=== PATIENT | male | born 1945 | race Caucasian/White ===

== ENCOUNTER 2021-11-20 10:43 | Day surgery (SDC) | payer OTHER ==
[2021-11-20] VITALS (10 sets, daily range): BP systolic 123–142; BP diastolic 69–90
[~2021-11-20] VITALS: Ht 182.9 cm; Wt 99.2 kg
[2021-11-20] MEDS ORDERED: iohexol 350 MG/ML 50ML vial IV ONE (11:00)
[2021-11-20] MEDS ORDERED: normal saline 1,000 ML IV SCH (11:15)
[2021-11-20] MEDS ORDERED: diphenhydrAMINE 25mg capsule PO PRN (11:15)
[2021-11-20] MEDS ORDERED: VITD (11:27)
[2021-11-20] MEDS ORDERED: GABA300C PO (11:27)
[2021-11-20] MEDS ORDERED: ALLO300T2 PO (11:27)
[2021-11-20] MEDS ORDERED: PRAV80TA3 PO (11:27)
[2021-11-20] MEDS ORDERED: [UNRECOGNIZED DRUG - OTHER] (11:27)
[2021-11-20] MEDS ORDERED: OMEP20CA15 PO (11:27)
[2021-11-20] MEDS ORDERED: LOSA50TA3 PO (11:27)
[2021-11-20] MEDS ORDERED: RANO500T3 PO (11:27)
[2021-11-20] MEDS ORDERED: ASPI-1071 PO (11:27)
[2021-11-20] MEDS ORDERED: FINA5TAB11 PO (11:27)
[2021-11-20] MEDS ORDERED: APIX5TAB3 PO (11:27)
[2021-11-20] MEDS ORDERED: FLO0.4C PO (11:27)
[2021-11-20] MEDS ORDERED: ZOLP5TAB8 PO (11:27)
[2021-11-20] MEDS ORDERED: CHLO25TA10 PO (11:27)
[2021-11-20] MEDS ORDERED: NITR0.4T51 SL (11:27)
[2021-11-20] MEDS ORDERED: FLUT16SP10 (11:32)
[2021-11-20] MEDS ORDERED: TRAM50TA2 PO (11:32)
[2021-11-20] MEDS ORDERED: TORS20TA3 PO (11:32)
[2021-11-20] MEDS ORDERED: FAMO-128 PO (11:32)
[2021-11-20] MEDS ORDERED: AMLO10TA14 PO (11:32)
[2021-11-20 11:53] LABS: BASOPHILS # (AUTO) 0.1 X10'3 (0-0.2); BASOPHILS % (AUTO) 1.5 % (0-1); EOSINOPHILS # (AUTO) 0.4 X10'3 (0-0.9); HEMATOCRIT 29.6 % (42.0-52.0); HEMOGLOBIN 9.9 g/dl (14.0-17.9); LYMPHOCYTES # (AUTO) 0.6 X10'3 (1.1-4.8); LYMPHOCYTES % (AUTO) 11.9 % (21-51); MEAN CORPUSCULAR HEMOGLOBIN 30.4 PG (27.0-31.0); MEAN CORPUSCULAR HGB CONC 33.4 g/dL (33.0-36.5); MEAN CORPUSCULAR VOLUME 90.9 FL (78-98); MEAN PLATELET VOLUME 7.1 FL (7.4-10.4); MONOCYTES # (AUTO) 0.4 X10'3 (0-0.9); MONOCYTES % (AUTO) 8.1 % (2-12); NEUTROPHILS # (AUTO) 3.7 X10'3 (1.8-7.7); NEUTROPHILS % (AUTO) 70.5 % (42-75); PLATELET COUNT 206 X10'3 (140-440); RED BLOOD COUNT 3.26 X10'6 (4.70-6.10); RED CELL DISTRIBUTION WIDTH 18.7 % (11.5-14.5); WHITE BLOOD COUNT 5.2 X10'3 (4.5-11.0)
[2021-11-20 12:01] LABS: ALBUMIN 3.4 G/DL (3.4-5.0); ANION GAP 10 (8-16); BLOOD UREA NITROGEN 25 MG/DL (7-18); BUN/CREATININE RATIO 15.9 (5.4-32.0); CALCIUM 8.8 MG/DL (8.5-10.1); CHLORIDE 106 MMOL/L (99-107); CREATININE 1.57 MG/DL (0.60-1.10); GLUCOSE 106 MG/DL (70-104); MAGNESIUM 2.4 MG/DL (1.5-2.4); POTASSIUM 4.4 MMOL/L (3.5-5.1); SODIUM 140 MMOL/L (135-145); TOTAL CARBON DIOXIDE 24.4 MMOL/L (24-32); eGFR 43 ML/MIN
[2021-11-20] MEDS ORDERED: verapamil 2.5 mg/ml inj IV ONE (14:31)
[2021-11-20] MEDS ORDERED: nitroGLYCERIN-Tridil 50MG/D5W 0 ML IV ONE (14:31)
[2021-11-20] MEDS ORDERED: midazolam 1 mg/ML 2ml injection ONE (14:32)
[2021-11-20] MEDS ORDERED: LIDOcaine 1% 30ml preserv. free vial ONE (14:32)
[2021-11-20] MEDS ORDERED: heparin 1,000unit/ml 10ml vial 10 ML ONE (14:32)
[2021-11-20] MEDS ORDERED: fentaNYL/PF 50MCG/1 ML 2ML syringe ONE (14:32)
[2021-11-20] MEDS ORDERED: IOHEXOL 350 MG/ML INFUS..BTL 125ML IV ONE (14:34)
[2021-11-20] MEDS ORDERED: normal saline 1000ml 1,000 ML IV SCH (16:50)
[2021-11-20] MEDS ORDERED: HYDROcodone/acetaminophen 10/325mg tab PO PRN (16:50)
[2021-11-20] MEDS ORDERED: proCHLORperazine 10 MG/2 ml inj IV PRN (16:50)
[2021-11-20] MEDS ORDERED: HYDROcodone/acetaminophen 5mg/325mg tablet PO PRN (16:50)
[2021-11-20] MEDS ORDERED: ondansetron/PF 4mg/2ml inj IV PRN (16:50)
== END 2021-11-20 19:30 | disposition home or self-care (01) ==
LOC: SSTAY O 10:43
PROVIDERS: ATTEND Internal Medicine Cardiovascular Disease
DX: R06.02 Shortness of breath (principal); R06.09 Other forms of dyspnea; I25.810 Atherosclerosis of coronary artery bypass graft(s) without angina pectoris; I48.20 Chronic atrial fibrillation, unspecified; I27.20 Pulmonary hypertension, unspecified; D64.9 Anemia, unspecified; N18.9 Chronic kidney disease, unspecified; Z79.899 Other long term (current) drug therapy
CPT/HCPCS: 80048; 83735; 85025; 85610; 93005; 93461; 99152; 99153; C1751; C1760; C1769; C1894; J1644; J2250; J3010; J3490; J7030; Q0163; Q9967; A4620; A6258